=== PATIENT | male | born 1995 | race Two or more races ===

== ENCOUNTER 2017-01-07 22:05 | Emergency (ER) | payer MEDICAID ==
[~2017-01-07] VITALS: Ht 177.8 cm; Wt 91.7 kg
[2017-01-07 22:08] VITALS: BP 132/84
[2017-01-07] MEDS ORDERED: FLUORESCEIN OPHTHALMIC 1 MG STRIP ONE (22:34)
[2017-01-07] MEDS ORDERED: PROPARACAINE OPHTH 0.5%, 15ML ONE (22:34)
== END 2017-01-07 23:08 | disposition home or self-care (01) ==
LOC: ED 23:02
DX: H10.021 Other mucopurulent conjunctivitis, right eye (principal)
CPT/HCPCS: 99283